=== PATIENT | male | born 1985 | race Caucasian/White ===

== ENCOUNTER 2020-01-10 00:18 | Emergency (ER) | payer MEDICAID ==
[~2020-01-10] VITALS: Ht 185.4 cm; Wt 93.0 kg
[~2020-01-10 00:18] MED LIST: CLOT15CR74 TP; IBUP-1986 PO; NO HOME MEDS; ONDA8TAB9 PO
[2020-01-10 00:19] VITALS: BP 137/86
== END 2020-01-10 01:42 ==
LOC: ER 00:18
DX: S00.01XA Abrasion of scalp, initial encounter (principal); F41.9 Anxiety disorder, unspecified; F31.9 Bipolar disorder, unspecified; F29 Unspecified psychosis not due to a substance or known physiological condition; F20.9 Schizophrenia, unspecified; F12.90 Cannabis use, unspecified, uncomplicated; Z59.0 Homelessness; Z56.0 Unemployment, unspecified; Z79.899 Other long term (current) drug therapy; V87.7XXA Person injured in collision between other specified motor vehicles (traffic), initial encounter; Y93.89 Activity, other specified; Y92.410 Unspecified street and highway as the place of occurrence of the external cause; Y99.8 Other external cause status
CPT/HCPCS: 70450; 99284

== ENCOUNTER 2020-04-03 14:06 | Emergency (ER) | payer MEDICAID ==
[~2020-04-03] VITALS: Ht 182.9 cm; Wt 90.9 kg
[2020-04-03 14:53] LABS: CLARITY,URINE CLEAR (Clear); COLOR,URINE STRAW (Yellow); GLUCOSE, URINE NEGATIVE (Neg); KETONES,URINE NEGATIVE (Neg); LEUKOCYTE ESTERASE ,URINE NEGATIVE (Neg); NITRITES, URINE NEGATIVE (Neg); OCCULT BLOOD,URINE NEGATIVE (Neg); PROTEIN,URINE NEGATIVE (Neg); UROBILINOGEN,URINE 0.2 E.U/dL (0.2-1.0)
[2020-04-03 14:54] LABS: UA COLLECTION TYPE CLN CATCH MIDSTREAM
[2020-04-03 15:03] LABS: URINE AMPHETAMINE SCREEN POSITIVE (Neg); URINE BARBITUATE SCREEN NEGATIVE (Neg); URINE BENZODIAZEPINES SCREEN NEGATIVE (Neg); URINE CANNABINOID SCREEN NEGATIVE (Neg); URINE COCAINE SCREEN NEGATIVE (Neg); URINE METHADONE SCREEN NEGATIVE (Neg); URINE OPIATE SCREEN NEGATIVE (Neg); URINE PHENCYCLIDINE SCREEN NEGATIVE (Neg)
[2020-04-03 15:11] LABS: BASOPHILS # (AUTO) 0.1 X10'3 (0-0.2); BASOPHILS % (AUTO) 0.5 % (0-1); EOSINOPHILS % (AUTO) 0.2 % (0-6); HEMATOCRIT 42.3 % (42.0-52.0); HEMOGLOBIN 14.8 g/dl (14.0-17.9); LYMPHOCYTES # (AUTO) 0.9 X10'3 (1.1-4.8); LYMPHOCYTES % (AUTO) 7.6 % (21-51); MEAN CORPUSCULAR HEMOGLOBIN 31.2 PG (27.0-31.0); MEAN CORPUSCULAR HGB CONC 34.9 g/dL (33.0-36.5); MEAN CORPUSCULAR VOLUME 89.6 FL (78-98); MEAN PLATELET VOLUME 7.4 FL (7.4-10.4); MONOCYTES # (AUTO) 1.4 X10'3 (0-0.9); MONOCYTES % (AUTO) 11.4 % (2-12); NEUTROPHILS # (AUTO) 9.7 X10'3 (1.8-7.7); NEUTROPHILS % (AUTO) 80.3 % (42-75); PLATELET COUNT 293 X10'3 (140-440); RED BLOOD COUNT 4.73 X10'6 (4.70-6.10); RED CELL DISTRIBUTION WIDTH 12.7 % (11.5-14.5); WHITE BLOOD COUNT 12.1 X10'3 (4.5-11.0)
[2020-04-03 15:26] LABS: ALANINE AMINOTRANSFERASE 26 U/L (12-78); ALBUMIN 4.4 G/DL (3.4-5.0); ALBUMIN/GLOBULIN RATIO 1.4 (1.1-1.5); ALKALINE PHOSPHATASE 104 IU/L (46-116); ANION GAP 7 (8-16); ASPARTATE AMINO TRANSFERASE 32 U/L (10-37); BLOOD UREA NITROGEN 10 MG/DL (7-18); CALCIUM 9.1 MG/DL (8.5-10.1); CHLORIDE 99 MMOL/L (99-107); CREATININE 0.91 MG/DL (0.60-1.10); GLUCOSE 112 MG/DL (70-104); POTASSIUM 4.3 MMOL/L (3.5-5.1); SODIUM 136 MMOL/L (135-145); TOTAL CARBON DIOXIDE 30.3 MMOL/L (24-32); TOTAL PROTEIN 7.6 G/DL (6.4-8.2); eGFR > 90 ML/MIN
[2020-04-03 15:27] LABS: ETHANOL < 0.010 GM/DL (0.0-0.010)
[2020-04-03 15:28] LABS: ACETAMINOPHEN < 2.0 UG/ML (10-30)
[2020-04-03 15:29] LABS: VALPROATE 8 UG/ML (50-100)
--- NOTE | 2020-04-03 18:33 | NUR ---
PACKET FAXED TO THE [facility]
--- NOTE | 2020-04-03 18:45 | NUR ---
UPDATED PT PLAN OF CARE WITH HIM . PT REPORTS HE HAS JUST BE RELEASED FROM [facility] FROM PENITENTIARY . HE HAS LOOSE ASSOCIATIONS AND THOUGHT BLOCKING . PT USED ALSO HAD SOME TANGIABLE POINTS OF REFERANCE. PT DENIES TAKING MEDICATION ON A REGUALR BASIS , HE NO WHERE TO FILL PRESCRPITION. PT VERBALIZED UNDERSTADNING OF THE UPDATED PLAN OF CARE . PT IN THE DIRECT LINE OF NURSING STAFF. WILL CONTINUE TO MONITER AND REASSESS NEEDED
--- NOTE | 2020-04-03 19:50 | NUR ---
PT TEARFUL . TALKING ABOUT" HOW TO BE HUMBLE AND HOW HE IS GOING TO NEED TO FIGURE OUT ON HOW TO FUNCTION WITH THE WAY HIS MIND THE WAY IT IS "
[2020-04-03] MEDS: Melatonin 3mg tablet PO SCH (21:00)
--- NOTE | 2020-04-03 21:00 | NUR ---
PT RESTING QUIETLY IN BED . PT DENIES ANY NEEDS AT THIS TRISHA . PT IN THE DIRECT LINE OF SIGHT O FNURING STAFF
--- NOTE | 2020-04-03 23:39 | NUR ---
PATIENT UP TO USE RSTROOM AND BACK TO BED COVERS ON LYING SUPINE EYEYS CLOSED RR EVEN UN LABORED NO OBSERVABLE S/S OF ACUTE STRESS AT THIS TIME WILL CONTINUE TO MONITOR WHILE BREAKING PRIMARY RN
--- NOTE | 2020-04-04 00:25 | NUR ---
PT AMBULATED TO BATHOM . ADVISED PT THAT HE IS ON HIS LAST PTICHER OF WATER FOR THE EVENING . ENCOUARGED PATIENT TO GET SOME SLEEP REOFFERD THE MELATONIN . PT STATED " NO I WANT TO STRIGHTEN MY BRAIN OUT NATURALLY "
--- NOTE | 2020-04-04 01:00 | NUR ---
PT STILL AWAKE SUGGESTED PATIENT TAKE MELATONIN FOR SLEEP . PT SATED HE WOULD THINK ABOUT IT
[2020-04-04] MEDS: Melatonin 3mg tablet PO SCH (01:19)
--- NOTE | 2020-04-04 01:23 | NUR ---
PT BACK TO BATHROOM . PT ASKED FOR MELATONIN . GIVEN ORDERED
--- NOTE | 2020-04-04 02:00 | NUR ---
PT RESTLESS BUT REDIRECTABLE
--- NOTE | 2020-04-04 02:00 | NUR ---
Kelli loomis in ED - 04/04/20 at 0503 by EUGENE PT STILL AWAKE SUGGESTED PATIENT TAKE MELATONIN FOR SLEEP . PT SATED HE WOULD THINK ABOUT IT
--- NOTE | 2020-04-04 02:00 | NUR ---
PT REFUSED COVID SWAB STATED THAT HE HAD ONE IN RESIDENTIAL AND IT WAS NEG AND HE ISMNT GOING TO HAVE ANOTHER. ALANIS HAS ASKED FOR THE COVID RESULTS AND THE TSH RESULTS TO BE FAXED TO A [facility] AT [facility] FOR PT EVALUATION. REPORT WILLK BE GIVEN IN AM TO HAVE PT COVID TESTED HE IS CURRENTLY REFUSING AND THAT WILL HOLD UP PLACEMENT. AT [facility]
--- NOTE | 2020-04-04 03:09 | NUR ---
PT STILL AWAKE . UP AT THE NURSES STATION TRYING TO GATHER HIS THOUGHT S HE MIND BLOCKS WHEN TRYING TO SPEEK SENTENCES , HOWEVER THE NIGHT MOVES FORWARD, PATIENT DIALOGUE IS CLEARER AND HE IS MAKING MORE SENSE IN EXPRESSING HIS FEELINGS AND NEEDS . PT REPORTS HE HAS COURT IN AM AND WILL NEED TO CALL THE COURT HOUSE IN AM TO LET THEM KNOW HE HAS BEEN PLACED ON A 5150 HOLD
--- NOTE | 2020-04-04 04:00 | NUR ---
PT AWAKE UP TO BATHROOM
--- NOTE | 2020-04-04 05:01 | NUR ---
PT UP OUT OF BED BACK TO BATHRROM
--- NOTE | 2020-04-04 05:18 | NUR ---
PT UP AT NURSES STATION ASKING JAKI RAMIREZ , PROVIDED PATIENT WITH APPLE JUICE
--- NOTE | 2020-04-04 05:57 | NUR ---
SECURITY AND DR BOB TO BEDSIDE TO TALK TO PATIENT WHO WANTS TO LEAVE HE DOSENT SEEM TO BELIEVE HE IS ON A 5150 . MD ADVISED PATIENT HE IS ON A HOLD AND HE CAN NOT LEAVE . PT VERY AGITATED BUT WAS ABLE TO MAINTAIN HIS BEHAVIOR FROM OUTBURST . WAS REDIRECTED BACK TO BEDSIDE AFTER GETING SOME BOOK WIND TUNNEL TECHNICIAN CONVERSED WITH PATIENT ALSO EXPLAINING THE POLICY AND HOW OF IS A HOLDING MENTAL HEALTH P[LACEMENT . EDUCATED PATIENT THAT HE IS IN A HOSPITAL ADN THAT THERE IS OTHER PATIENT ON UNIT AND IT IS IMPORTANT TO MAINTAIN HIS BEHAVIOR.
[2020-04-04] MEDS ORDERED: haloperidol lactate 5mg/ml inj IM ONE (06:25)
[2020-04-04] MEDS ORDERED: LORazepam 2 mg/ml vial IM ONE (06:25)
--- NOTE | 2020-04-04 06:30 | NUR ---
REPORTED OFF THAT PATIENT NEEDS TO HAVE COVID HE REFUSED ON MY SHIFT CLOVER AT [facility] TO RECIEVED TSH AND COVID REULTS IN ORDER FOR PLACMENT . THE FAX IS [phone]
--- NOTE | 2020-04-04 06:39 | NUR ---
pt is very anxious walking around, talking non-sense. stating that he wants to leave. states he has to leave so he can "save someone's life" he keeps saying he would like the papers to sign himself out.
--- NOTE | 2020-04-04 07:30 | NUR ---
pt is resting after meds
--- NOTE | 2020-04-04 08:23 | NUR ---
no issues at this time. pt is sleeping
--- NOTE | 2020-04-04 09:00 | NUR ---
airplane first officer came and dropped off montior dcs engineer. lex barriga
--- NOTE | 2020-04-04 10:00 | NUR ---
pt is sleeping no concerns at this time
--- NOTE | 2020-04-04 11:00 | NUR ---
pt is sleeping no concerns at this time
--- NOTE | 2020-04-04 12:00 | NUR ---
pt is sleeping no concerns at this time
--- NOTE | 2020-04-04 13:00 | NUR ---
pt is sleeping no concerns at this time
--- NOTE | 2020-04-04 13:37 | NUR ---
covid test in negative
--- NOTE | 2020-04-04 15:59 | NUR ---
Assumed care of patient, pt. sleeping in his bed at this time, laying on left side and rr even and unlabored.
[2020-04-04 17:32] VITALS: BP 136/72
--- NOTE | 2020-04-04 17:57 | NUR ---
Pt. up to use the bathroom, able to do so independently and then returned back to bed. He was compliant with V/S and remain WNL. Pt. laying on left side at this time, rr even and unlabored.
--- NOTE | 2020-04-04 17:59 | NUR ---
Pt. will be transferring to [facility] later tonight.
== END 2020-04-04 22:45 ==
LOC: ER 14:08
DX: F23 Brief psychotic disorder (principal); Z20.828 Contact with and (suspected) exposure to other viral communicable diseases; F41.9 Anxiety disorder, unspecified; F31.9 Bipolar disorder, unspecified; F12.90 Cannabis use, unspecified, uncomplicated; F15.90 Other stimulant use, unspecified, uncomplicated; Z56.0 Unemployment, unspecified; Z59.0 Homelessness
CPT/HCPCS: 36415; 80053; 80164; 80305; 80320; 80329; 81003; 84443; 85025; 87635; 96372; 99285; C9803; J1630; J2060

== ENCOUNTER 2020-04-04 14:22 | Inpatient (IN) | payer MEDICAID ==
[~2020-04-04] VITALS: Ht 182.9 cm; Wt 91.0 kg
[~2020-04-04 14:22] MED LIST changes: -CLOT15CR74 TP
[2020-04-04] MEDS ORDERED: magnesium hydroxide 30ml (MOM) UD suspension PO PRN (22:55)
[2020-04-04] MEDS ORDERED: loperamide 2mg capsule PO PRN (22:55)
[2020-04-04] MEDS ORDERED: acetaminophen 325mg tablet PO PRN ×2 (22:55)
[2020-04-04] MEDS ORDERED: mag hydrox/Alum hydrox/simeth 30ml oral suspension PO PRN (22:55)
[2020-04-04] MEDS ORDERED: LORazepam 1 MG tablet PO PRN (22:55)
[2020-04-04] MEDS ORDERED: traZODone 50mg tablet PO PRN (22:55)
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
[2020-04-05 07:28] LABS: HDL CHOLESTEROL 77 MG/DL (35-60); LDL CHOLESTEROL 52 MG/DL (50-100); TRIGLYCERIDES 64 MG/DL (20-135)
[2020-04-05 07:39] LABS: CHOL/HDL RATIO 1.8 (0.00-4.99); CHOLESTEROL 140 MG/DL (0-200)
[2020-04-05 07:40] LABS: HEMOGLOBIN A1C 5.3 % (4.5-6.2)
[2020-04-05 07:41] VITALS: BP 110/75
[2020-04-05] MEDS: nicotine 21mg patch - 24 hr TD SCH (13:18)
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
--- NOTE | 2020-04-05 18:03 | NUR ---
Met w/pt completed psychosocial assessment, pt signed MICHELE & #9. Engaged pt in DCP activities. Per session, pt wants to d/c and will return to the [facility] where his geophysical prospecting permit agent had paid for his long-term for the month, pt will then call parole and sign up for substance use treatment/services. Hanna Caraballo LCSW Addendum: 04/05/20 at 1807 by Hanna Caraballo SS Amended: Links added.
[2020-04-05] MEDS ORDERED: hydrOXYzine 25 MG tablet PO PRN (19:20)
[2020-04-05 19:57] VITALS: BP 123/69
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
[2020-04-06 07:12] VITALS: BP 135/72
[2020-04-06] MEDS: nicotine 21mg patch - 24 hr TD SCH (07:25)
[2020-04-06] MEDS ORDERED: atomoxetine 40 MG capsule PO SCH (08:00)
[2020-04-06] MEDS ORDERED: sertraline 50mg tablet PO SCH (08:00)
[2020-04-06] MEDS ORDERED: divalproex sod 250mg ER (24-hour) tablet PO SCH (08:00)
--- NOTE | 2020-04-06 10:06 | NUR ---
Initial: Pt admit DX acute psychosis, ADHD per EMR. PO 75-100% avg regular diet meeting needs. No BM yet though recently admitted. No nutrition concerns at this time. Will continue to monitor. Rec: 1. continue regular diet 2. bowel care per rx 3. wt per rx Addendum: 04/06/20 at [address] Amended: Links added.
[2020-04-06] MEDS ORDERED: HYDR50TA65 PO (11:41)
[2020-04-06] MEDS ORDERED: NICO-687 TD (11:41)
[2020-04-06] MEDS ORDERED: ATOM40CA PO (11:41)
[2020-04-06] MEDS ORDERED: DIVA250T8 PO (11:41)
[2020-04-06] MEDS ORDERED: SERT50TA10 PO (11:41)
--- NOTE | 2020-04-06 14:45 | NUR ---
DISCHARGE NOTE The patient was discharged today at 1300. He left with all belongings and instructions. His medications were called in to [facility] [address]. He was escorted to the lobby by BOB Rojas. He decided he would walk to [facility] to cigar packer and picker his medications and felt he did not need a cab. He denied all hallucinatins and was not having any suicidal thoughts. Stated, "I want to get in a rehab."
== END 2020-04-06 13:00 | disposition home or self-care (01) | DRG 750 ==
LOC: ADULT MH 22:45
PROVIDERS: ADMIT Psychiatry & Neurology Psychiatry; ATTEND Psychiatry & Neurology Psychiatry
DX: F20.0 Paranoid schizophrenia (principal); F15.10 Other stimulant abuse, uncomplicated; F17.210 Nicotine dependence, cigarettes, uncomplicated; F31.9 Bipolar disorder, unspecified; F90.9 Attention-deficit hyperactivity disorder, unspecified type; Z91.5 Personal history of self-harm; Z80.1 Family history of malignant neoplasm of trachea, bronchus and lung
CPT/HCPCS: 36415; 80061; 83036; 87081; Q0177

== ENCOUNTER 2020-04-21 12:19 | Emergency (ER) | payer MEDICAID ==
[~2020-04-21] VITALS: Ht 182.9 cm; Wt 88.6 kg
[~2020-04-21 12:19] MED LIST changes: +ATOM40CA PO; +DIVA250T8 PO; +HYDR50TA65 PO; -IBUP-1986 PO; +NICO-687 TD; -ONDA8TAB9 PO; +SERT50TA10 PO
--- NOTE | 2020-04-21 13:37 | NUR ---
Discussed pt's disturbed thoughts including noted paranoia w/ EDMD Yost;new order for Geodon 20mg PO received.
[2020-04-21] MEDS ORDERED: ziprasidone 20mg capsule PO ONE (13:40)
--- NOTE | 2020-04-21 14:06 | NUR ---
urine collected and sent to lab.
[2020-04-21 14:19] LABS: BASOPHILS % (AUTO) 0.4 % (0-1); EOSINOPHILS # (AUTO) 0.1 X10'3 (0-0.9); EOSINOPHILS % (AUTO) 1.5 % (0-6); HEMATOCRIT 41.6 % (42.0-52.0); HEMOGLOBIN 14.8 g/dl (14.0-17.9); LYMPHOCYTES # (AUTO) 0.9 X10'3 (1.1-4.8); LYMPHOCYTES % (AUTO) 11.7 % (21-51); MEAN CORPUSCULAR HGB CONC 35.5 g/dL (33.0-36.5); MEAN CORPUSCULAR VOLUME 90.3 FL (78-98); MEAN PLATELET VOLUME 7.4 FL (7.4-10.4); MONOCYTES # (AUTO) 0.9 X10'3 (0-0.9); NEUTROPHILS # (AUTO) 5.8 X10'3 (1.8-7.7); NEUTROPHILS % (AUTO) 74.4 % (42-75); PLATELET COUNT 342 X10'3 (140-440); RED BLOOD COUNT 4.61 X10'6 (4.70-6.10); RED CELL DISTRIBUTION WIDTH 12.6 % (11.5-14.5); WHITE BLOOD COUNT 7.8 X10'3 (4.5-11.0)
[2020-04-21 14:24] LABS: CLARITY,URINE CLEAR (Clear); COLOR,URINE YELLOW (Yellow); GLUCOSE, URINE NEGATIVE (Neg); KETONES,URINE NEGATIVE (Neg); LEUKOCYTE ESTERASE ,URINE NEGATIVE (Neg); NITRITES, URINE NEGATIVE (Neg); OCCULT BLOOD,URINE NEGATIVE (Neg); PROTEIN,URINE NEGATIVE (Neg)
--- NOTE | 2020-04-21 14:25 | NUR ---
Pt moved from the main section in the ED to ED Overflow mental health area for further monitoring while awaiting lab results for clearance then evaluation by [facility]. Pt is calm and cooperative. Pt given a sandwich and a container of ice water. Med reconciliation completed and will be reviewed by the provider.
[2020-04-21] MEDS ORDERED: SERT50TA10 PO (14:27)
[2020-04-21] MEDS ORDERED: ATOM40CA7 (14:27)
[2020-04-21] MEDS ORDERED: DIVA-74 PO (14:27)
[2020-04-21 14:29] LABS: UA COLLECTION TYPE CLN CATCH MIDSTREAM; URINE AMPHETAMINE SCREEN POSITIVE (Neg); URINE BARBITUATE SCREEN NEGATIVE (Neg); URINE BENZODIAZEPINES SCREEN NEGATIVE (Neg); URINE CANNABINOID SCREEN POSITIVE (Neg); URINE COCAINE SCREEN NEGATIVE (Neg); URINE METHADONE SCREEN NEGATIVE (Neg); URINE OPIATE SCREEN NEGATIVE (Neg); URINE PHENCYCLIDINE SCREEN NEGATIVE (Neg)
[2020-04-21 14:37] LABS: ALANINE AMINOTRANSFERASE 32 U/L (12-78); ALBUMIN 3.7 G/DL (3.4-5.0); ALKALINE PHOSPHATASE 108 IU/L (46-116); ANION GAP 9 (8-16); ASPARTATE AMINO TRANSFERASE 35 U/L (10-37); BILIRUBIN,TOTAL 0.8 MG/DL (0.1-1.0); BLOOD UREA NITROGEN 8 MG/DL (7-18); BUN/CREATININE RATIO 9.3 (5.4-32.0); CALCIUM 9.2 MG/DL (8.5-10.1); CHLORIDE 102 MMOL/L (99-107); CREATININE 0.86 MG/DL (0.60-1.10); GLUCOSE 94 MG/DL (70-104); POTASSIUM 3.8 MMOL/L (3.5-5.1); SODIUM 140 MMOL/L (135-145); TOTAL CARBON DIOXIDE 28.8 MMOL/L (24-32); TOTAL PROTEIN 7.3 G/DL (6.4-8.2); eGFR > 90 ML/MIN
[2020-04-21 14:50] LABS: ETHANOL < 0.010 GM/DL (0.0-0.010)
--- NOTE | 2020-04-21 15:04 | NUR ---
Packed faxed to [facility] office with all the lab results. Medication reconciliation addressed by the provider and faxed to pharmacy.
[2020-04-21] MEDS: nicotine 21mg patch - 24 hr TD SCH (15:30)
--- NOTE | 2020-04-21 16:03 | NUR ---
Pt has no change in condition, in line of sight of the nurse's station. Continuing to monitor. Pt is resting at this time. Will offer nicotine patch when he awakens.
--- NOTE | 2020-04-21 17:02 | NUR ---
Pt has no change in condition, in line of sight of the nurse's station. Continuing to monitor.
--- NOTE | 2020-04-21 17:30 | NUR ---
Pt went right back to sleep after vitals check, will offer nicotine patch when he wakes up. Pt noted to have a low-grade temp, will recheck after a while. Pt has no signs of distress.
--- NOTE | 2020-04-21 18:09 | NUR ---
Pt's dinner tray placed at bedside for when he awakens. Pt is cooperative.
--- NOTE | 2020-04-21 18:30 | NUR ---
OFFERED NICOTENE PATCH PATIENT REFUSED REPORTS HE HASNT NEEDED THEM NOR HAS USED THEM IN QUITE AWHILE.
--- NOTE | 2020-04-21 19:30 | NUR ---
COVID SYMPTOMS REPORTED RAPID RESULT SWAB PENDING.
[2020-04-21] MEDS: sertraline 50mg tablet PO SCH (20:21)
[2020-04-21] MEDS: divalproex 250mg tablet, delayed-release PO SCH (20:21)
--- NOTE | 2020-04-21 20:30 | NUR ---
COOPERATIVE, PO INTAKE ENCOURAGED. PATIENT REPORTS FEELING CHILLED.
[2020-04-21] MEDS ORDERED: acetaminophen 325mg tablet PO ONE (20:35)
--- NOTE | 2020-04-21 21:45 | NUR ---
temp down as document. Patient cooperative. No complaints at this time
--- NOTE | 2020-04-21 22:45 | NUR ---
sleeping no signs of distress. Respirations even and unlabored
--- NOTE | 2020-04-22 | NUR ---
Sleeping on left side. No signs of distress
--- NOTE | 2020-04-22 01:00 | NUR ---
SLEEPING RIGHT SIDE. RESPIRATIONS EVEN AND UNLABORED NO SIGNS OF DISTRESS Addendum: 04/22/20 at 0604 by NINFA NOTE SHOULD BE TIMED 0200 DANILO
--- NOTE | 2020-04-22 01:00 | NUR ---
AWOKE DRANK PITCHER IF ICE WATER REPOSITIONED SELF.
--- NOTE | 2020-04-22 03:00 | NUR ---
SLEEPING RIGHT SIDE. RESPIRATIONS EVEN AND UNLABORED NO SIGNS OF DISTRESS
--- NOTE | 2020-04-22 04:00 | NUR ---
NO CHANGE, SLEEPING, NO SIGNS OF DISTRESS
--- NOTE | 2020-04-22 05:10 | NUR ---
AWOKE FOR VITAL SIGNS COOPERATIVE, ASKED FOR PAIN MEDICATION TO TECH. AWAITING CALL BACK FROM dR Dias
[2020-04-22] MEDS ORDERED: acetaminophen 325mg tablet PO ONE (05:45)
--- NOTE | 2020-04-22 06:00 | NUR ---
uneventful night. Tylemol order x [address] Dias initiated for left foot pain. Patient is cooperative.
--- NOTE | 2020-04-22 06:43 | NUR ---
pt sleeping in bed but seems a little restless
[2020-04-22] MEDS ORDERED: sertraline 50mg tablet PO SCH (08:00)
[2020-04-22] MEDS: atomoxetine 40 MG capsule PO SCH (08:09)
[2020-04-22] MEDS: divalproex 250mg tablet, delayed-release PO SCH ×2 (08:09→20:19)
[2020-04-22] MEDS: nicotine 21mg patch - 24 hr TD SCH (08:09)
--- NOTE | 2020-04-22 13:46 | NUR ---
sleeping on right side.
--- NOTE | 2020-04-22 16:40 | NUR ---
Called [facility] office earlier to ask about the pt's placement status. was told that the pt has insurance with [facility] and they were refusing to pay for placement for the pt. Informed Director Tricia and she contacted the Behavioral Health Director Grace Escalnate and she suggested to call the [facility] Crisis line and have the pt transported to [facility] Crisis unit. called [facility] office and left a message.
[2020-04-22] MEDS ORDERED: ibuprofen tablet 400 MG TABLET PO PRN (18:05)
--- NOTE | 2020-04-22 19:25 | NUR ---
Collected swab for influenza rapid, pt tolerated well
[2020-04-22] MEDS: sertraline 50mg tablet PO SCH (20:19)
--- NOTE | 2020-04-22 20:44 | NUR ---
LAb results back, NEGATIVE for influenza A+B
--- NOTE | 2020-04-22 22:35 | NUR ---
Pt wakes up to use the restroom, he states that he would like to go to [place] for assisted suicide and people that need them can get his organs. "Being on parole is suppose to help integrate you into society but it doesn't it traps you." "If i can't do any good for anyone, why even be here?" "I think the best thing for me to do is go out of here and drink antifreeze."
--- NOTE | 2020-04-23 02:08 | NUR ---
Pt up to tuse the restroom then lays back down
[2020-04-23] MEDS: acetaminophen 325mg tablet PO PRN (04:26)
--- NOTE | 2020-04-23 04:26 | NUR ---
PT requests tylenol for headache, prn tylenol 650 mg given
--- NOTE | 2020-04-23 07:00 | NUR ---
pt is resting in his room. no issues
--- NOTE | 2020-04-23 08:12 | NUR ---
pt is resting in his room. no issues
[2020-04-23] MEDS: divalproex 250mg tablet, delayed-release PO SCH ×2 (08:28→20:32)
[2020-04-23] MEDS: atomoxetine 40 MG capsule PO SCH (08:28)
[2020-04-23] MEDS: nicotine 21mg patch - 24 hr TD SCH (08:28)
--- NOTE | 2020-04-23 09:48 | NUR ---
pt is resting in his room. no issues
--- NOTE | 2020-04-23 10:00 | NUR ---
pt is resting in his room. no issues
--- NOTE | 2020-04-23 11:00 | NUR ---
pt is resting in his room. no issues
--- NOTE | 2020-04-23 12:01 | NUR ---
[facility]
--- NOTE | 2020-04-23 13:00 | NUR ---
pt is resting in his room. no issues
--- NOTE | 2020-04-23 14:00 | NUR ---
pt is resting in his room. no issues
--- NOTE | 2020-04-23 15:00 | NUR ---
pt is resting in his room. no issues
--- NOTE | 2020-04-23 16:00 | NUR ---
pt is resting in his room. no issues
--- NOTE | 2020-04-23 17:00 | NUR ---
pt is resting in his room. no issues
[2020-04-23] MEDS ORDERED: acetaminophen 325mg tablet PO ONE (17:45)
--- NOTE | 2020-04-23 18:00 | NUR ---
pt is resting in his room. no issues
[2020-04-23] MEDS: loratadine/pseudoephedrine TAB.SR.12Hour PO SCH ×2 (18:05→20:00)
--- NOTE | 2020-04-23 19:23 | NUR ---
JERRY REPORTS HE HERES THEM TELLING HIM THAT THEY WONT GO AWAY THEY ARE HERE AND THIS WORLD IS NOT A GOOD PLACE TO LIVE IN. HE REPORTS VOICE STOP WHEN I CAM TO HIS BEDSIDE. THEN ASKED FOR SANDWICH AND JUICES. REPORTS NEEDING ADDITIONAL VITAMIN C TO GET WELL HE KNOW HE IS SICK WITH A COLD.
[2020-04-23] MEDS ORDERED: hydrOXYzine 25 MG tablet PO ONE (19:35)
[2020-04-23] MEDS ORDERED: Melatonin 3mg tablet PO ONE (19:35)
[2020-04-23] MEDS ORDERED: loratadine/pseudoephedrine TAB.SR.12Hour PO SCH (20:00)
[2020-04-23] MEDS: sertraline 50mg tablet PO SCH (20:32)
--- NOTE | 2020-04-23 20:41 | NUR ---
Pt. in bed resting quietly.
--- NOTE | 2020-04-23 21:30 | NUR ---
LYING ON LEFT SIDE SLEEPING
--- NOTE | 2020-04-23 22:30 | NUR ---
LEFT SIDE SLEEPING, RESPIRATION EVEN AND UNLABORED.
--- NOTE | 2020-04-23 23:30 | NUR ---
EYES CLOSED LYING SUPINE NO SIGNS OF DISTRESS
--- NOTE | 2020-04-24 00:21 | NUR ---
EYES CLOSED LYING LEFT SIDE NO SIGNS OF DISTRESS
--- NOTE | 2020-04-24 01:45 | NUR ---
EYES CLOSED LYING SUPINE NO SIGNS OF DISTRESS
--- NOTE | 2020-04-24 04:40 | NUR ---
EYES CLOSED LYING SUPINE NO SIGNS OF DISTRESS
[2020-04-24 05:05] VITALS: BP 140/91
--- NOTE | 2020-04-24 05:45 | NUR ---
UNEVENTFUL NIGHT, EYES CLOSED LYING SUPINE NO SIGNS OF DISTRESS
--- NOTE | 2020-04-24 07:00 | NUR ---
Received pt asleep in bed without signs of distress.
[2020-04-24] MEDS: nicotine 21mg patch - 24 hr TD SCH (07:59)
[2020-04-24] MEDS: divalproex 250mg tablet, delayed-release PO SCH (07:59)
[2020-04-24] MEDS: loratadine/pseudoephedrine TAB.SR.12Hour PO SCH (07:59)
[2020-04-24] MEDS: atomoxetine 40 MG capsule PO SCH (07:59)
[2020-04-24] MEDS: acetaminophen 325mg tablet PO PRN (08:04)
--- NOTE | 2020-04-24 09:00 | NUR ---
Pt up for breakfast, cooperative with am assessment and assessment by [facility]. Pt has been denies at both [facility] and so continues to await placement.
--- NOTE | 2020-04-24 09:51 | NUR ---
PATIENT'S [facility] DREDGEMASTER IS PRECIOUS.
--- NOTE | 2020-04-24 11:00 | NUR ---
Pt currently talking to front desk officer and [facility] employee in an attempt to be released. Pt has spoken with mom and grandmother and is peacing together a plan for discharge. Pt states his grandmother said he could stay with her.
[2020-04-24] MEDS ORDERED: SERT50TA PO (11:52)
--- NOTE | 2020-04-24 12:21 | NUR ---
tactical intelligence officer and [facility] sheet taker agreed to a safety plan of discharge to family to stay at grandmother's house. Pt's uncle is picking up the pt. Pt will be dc'd around 1600 to his family. Pt was frustrated b/c he wanted to go smoke a cigarette, but he is staying calm.
--- NOTE | 2020-04-24 13:00 | NUR ---
Pt was unhappy that he wasn't leaving immediately, but was given some food and coffee and he relaxed and fell back to sleep.
--- NOTE | 2020-04-24 15:05 | NUR ---
Pt awake in bed, calm, talking to his mom.
--- NOTE | 2020-04-24 15:07 | NUR ---
Received Pt awake and standing by his bed in no distress.
== END 2020-04-24 16:07 | disposition home or self-care (01) ==
LOC: ER 12:19
DX: R45.851 Suicidal ideations (principal); M25.572 Pain in left ankle and joints of left foot; M25.571 Pain in right ankle and joints of right foot; Z20.828 Contact with and (suspected) exposure to other viral communicable diseases; F41.9 Anxiety disorder, unspecified; F31.9 Bipolar disorder, unspecified; F20.9 Schizophrenia, unspecified; F12.90 Cannabis use, unspecified, uncomplicated; F15.90 Other stimulant use, unspecified, uncomplicated; Z59.0 Homelessness; Z56.0 Unemployment, unspecified; Z88.8 Allergy status to other drugs, medicaments and biological substances; Z79.899 Other long term (current) drug therapy
CPT/HCPCS: 36415; 73610; 80053; 80305; 80320; 81003; 84443; 85025; 87502; 87503; 87635; 99285; C9803

== ENCOUNTER 2020-06-16 02:41 | Emergency (ER) | payer MEDICAID ==
[~2020-06-16] VITALS: Ht 182.9 cm; Wt 172.0 kg
[~2020-06-16 02:41] MED LIST changes: -ATOM40CA PO; +ATOM40CA7; +DIVA-74 PO; -DIVA250T8 PO; -HYDR50TA65 PO; -NICO-687 TD; -NO HOME MEDS
[2020-06-16 02:49] VITALS: BP 128/81
--- NOTE | 2020-06-16 03:02 | NUR ---
He was up to the sink trying to wash drugs down the sink, intercepted by security. at BS.
[2020-06-16] MEDS ORDERED: CEPH500C5 PO (03:08)
[2020-06-16] MEDS ORDERED: SULF1TAB49 PO (03:08)
[2020-06-16] MEDS ORDERED: bacitracin 15gm ointment TP ONE (03:10)
--- NOTE | 2020-06-16 03:16 | NUR ---
he left without his prescription. Despite being given to him again, he threw them on the bed.
== END 2020-06-16 03:18 | disposition home or self-care (01) ==
LOC: ER 02:42
DX: S61.411A Laceration without foreign body of right hand, initial encounter (principal); S80.212A Abrasion, left knee, initial encounter; T43.621A Poisoning by amphetamines, accidental (unintentional), initial encounter; F24 Shared psychotic disorder; L03.114 Cellulitis of left upper limb; F41.9 Anxiety disorder, unspecified; F31.9 Bipolar disorder, unspecified; F20.9 Schizophrenia, unspecified; F12.90 Cannabis use, unspecified, uncomplicated; F15.90 Other stimulant use, unspecified, uncomplicated; Z59.0 Homelessness; Z56.0 Unemployment, unspecified; Z88.8 Allergy status to other drugs, medicaments and biological substances; Z79.2 Long term (current) use of antibiotics; Z79.899 Other long term (current) drug therapy; X58.XXXA Exposure to other specified factors, initial encounter; Y93.89 Activity, other specified; Y92.89 Other specified places as the place of occurrence of the external cause; Y99.8 Other external cause status
CPT/HCPCS: 99283

== ENCOUNTER 2022-02-17 02:31 | Emergency (ER) | payer MEDICAID ==
[~2022-02-17] VITALS: Ht 182.9 cm; Wt 70.5 kg
[~2022-02-17 02:31] MED LIST changes: +SERT-433 PO; -SERT50TA10 PO
[2022-02-17 02:37] VITALS: BP 95/42
[2022-02-17] MEDS ORDERED: TETanus/Pertussis (Acell)/Diphther VAC/PF (Tdap-Adult) 0.5ml syringe IMVAC ONE (03:05)
[2022-02-17] MEDS ORDERED: bacitracin 15gm ointment TP ONE (03:05)
[2022-02-17] MEDS ORDERED: ondansetron 4mg rapidly disintigrating tab PO ONE (03:20)
[2022-02-17] MEDS ORDERED: amox tr/potassium clavulanate 500mg/125mg TAB PO ONE (03:20)
[2022-02-17] MEDS ORDERED: AMOX-115 PO (03:39)
[2022-02-17] MEDS ORDERED: ceFAZolin 1gm IM kit IM ONE (03:50)
== END 2022-02-17 04:16 ==
LOC: ER 02:32
DX: S02.2XXA Fracture of nasal bones, initial encounter for closed fracture (principal); S06.9XAA Unspecified intracranial injury with loss of consciousness status unknown, initial encounter; M79.604 Pain in right leg; F31.9 Bipolar disorder, unspecified; F20.9 Schizophrenia, unspecified; F12.10 Cannabis abuse, uncomplicated; F15.10 Other stimulant abuse, uncomplicated; Z59.00 Homelessness unspecified; Z56.0 Unemployment, unspecified; Z88.8 Allergy status to other drugs, medicaments and biological substances; W18.39XA Other fall on same level, initial encounter; Y93.89 Activity, other specified; Y92.89 Other specified places as the place of occurrence of the external cause; Y99.8 Other external cause status
CPT/HCPCS: 70450; 70486; 73590; 90471; 90715; 96372; 99284; J0690; J7030; A6446; A6449